=== PATIENT | male | born 1950 | race Caucasian/White ===

== ENCOUNTER 2019-01-09 19:22 | Emergency (ER) | payer OTHER ==
[2019-01-09 19:36] VITALS: BP 177/83
[2019-01-09] MEDS ORDERED: HYDROcod/ACET 5/325 Prepack 4 PO STA (19:51)
[2019-01-09] MEDS ORDERED: FLUCONAZOLE 100 MG TABLET PO STA (19:51)
[2019-01-09] MEDS ORDERED: NYSTATIN POWDER 15 GM TOP STA (19:51)
--- NOTE | 2019-01-09 19:53 | ED Physician Documentation ---
History of Present Illness - Stated complaint Stated Complaint: LUMP ON POSTERIOR/DIARRHEA - Chief complaint Chief Complaint: General - History obtained from History obtained from: Patient - History of Present Illness Timing: Other (3 days of a painful area in the gluteal crease. He is never had this before. No fevers or chills. He is a well-controlled diabetic. He recently moved to the area from [place] and had a long car trip with a lot of sweating.) Review of Systems Constitutional: denies: Fever, Chills Respiratory: reports: Reviewed and negative GI: reports: Reviewed and negative PD PAST MEDICAL HISTORY - Present Medications Home Medications: Ambulatory Orders Medication Instructions Recorded Confirmed Nystatin [Nystop] 1 applic TOP BID #3 bottle 01/09/19 - Allergies Allergies/Adverse Reactions: Allergies Allergy/AdvReac Type Severity Reaction Status Date / Time glipizide Allergy Edema Verified 01/09/19 19:32 insulin glargine Allergy Rash Verified 01/09/19 19:33 [From Lantus U-100 Insulin] PD ED PE NORMAL - Vitals Vital signs reviewed: Yes - General General: Alert and oriented X 3, No acute distress - Derm Derm: Other (He has intertriginous candidiasis towards the top of the gluteal crease without fluid collection or suggestion of abscess.) - Neuro Neuro: Alert and oriented X 3, Normal speech Results - Vitals Vitals: Vital Signs - 24 hr 01/09/19 19:28 Temperature 36.2 C L Heart Rate 93 Respiratory 16 Rate Blood Pressure 177/83 H O2 Saturation 95 Oxygen O2 Source Room air Departure - Departure Disposition: Home, Self Care Clinical Impression: Intertriginous candidiasis Hypertension Qualifiers: Hypertension type: essential hypertension Qualified Code(s): I10 - Essential (primary) hypertension Condition: Good Record reviewed to determine appropriate education?: Yes Instructions: ED Candidiasis Cutaneous Prescriptions: Nystatin [Nystop] 1 applic TOP BID #3 bottle Comments: Followup with your physician in 1 week. Return if worse.
== END 2019-01-09 20:08 | disposition home or self-care (01) ==
LOC: ED 19:22
DX: B37.2 Candidiasis of skin and nail (principal); I10 Essential (primary) hypertension; E11.9 Type 2 diabetes mellitus without complications; Z79.4 Long term (current) use of insulin
CPT/HCPCS: 99283; A9270

== ENCOUNTER 2019-01-12 19:34 | Emergency (ER) | payer OTHER ==
[2019-01-12 19:45] VITALS: BP 160/97
--- NOTE | 2019-01-12 19:59 | ED Physician Documentation ---
PD HPI MALE - Stated complaint Stated Complaint: MALE - Chief complaint Chief Complaint: General - History obtained from History obtained from: Patient - History of Present Illness Timing - onset: How many weeks ago (2) Timing - duration: Weeks (2) Timing - details: Gradual onset Pain level now: 8 Associated symptoms: No: Dysuria, Urinary frequency, Unable to urinate Recently seen: Emergency Dept - Additional information Additional information: This is a 68-year-old man who presents with complaints that he was seen here in the emergency department 3 days ago and diagnosed with a yeast infection in the "crack of his butt". He was prescribed nystatin powder and he said pills but the pills are not working. He now has lumps there and lots of bleeding. Symptoms started 3 to 4 days before is being seen here and he relates it to the fact that he moved on December 30 had a lot of sweating when he was in and out of the [employer] truck where he had a slide kind of against the seat to get in and out of it driving from [place]. He has had this happen before in the groin region and they prescribed some pills that cleared it right up. Denies any nausea or vomiting. No fever. He is a diabetic his blood sugars been running between upper 90s and low 100s. 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 He is also concerned because he has an enlarged prostate and is just dribbling of the urine. He only showers every 2-3 days. Review of Systems Constitutional: denies: Fever GI: denies: Nausea, Vomiting : reports: Other (Can only urinate small dribbles at a time). denies: Dysuria Skin: reports: Rash (In the gluteal crease) PD PAST MEDICAL HISTORY - Past Medical History Cardiovascular: Hypertension Endocrine/Autoimmune: Type 2 diabetes Musculoskeletal: Gout Derm: Psoriasis - Past Surgical History Past Surgical History: Yes HEENT: Tonsil/Adenoidectomy - Present Medications Home Medications: Ambulatory Orders Medication Instructions Recorded Confirmed Nystatin [Nystop] 1 applic TOP BID #3 bottle 01/09/19 01/12/19 Fluconazole [Diflucan] 150 mg PO DAILY #3 tablet 01/12/19 - Allergies Allergies/Adverse Reactions: Allergies Allergy/AdvReac Type Severity Reaction Status Date / Time glipizide Allergy Edema Verified 01/12/19 19:45 insulin glargine Allergy Rash Verified 01/12/19 19:45 [From Lantus U-100 Insulin] - Social History Does the pt smoke?: No Smoking Status: Never smoker Does the pt drink ETOH?: No Does the pt have substance abuse?: No PD ED PE NORMAL - Vitals Vital signs reviewed: Yes - General General: Alert and oriented X 3, No acute distress, Well developed/nourished - HEENT HEENT: Atraumatic - Respiratory Respiratory: No respiratory distress - Abdomen Abdomen: Other (Obese) - Derm Derm: Other (There is a erythematous rash with the top layer of skin denuded in the gluteal crease and there is serous drainage. No abscess.) - Neuro Neuro: Alert and oriented X 3, Other (No gross neurological deficits.) - Psych Psych: Normal mood, Normal affect Results - Vitals Vitals: Vital Signs - 24 hr 01/12/19 19:43 Temperature 36.9 C Heart Rate 74 Respiratory 16 Rate Blood Pressure 160/97 H O2 Saturation 96 Oxygen O2 Source Room air - Labs Labs: Laboratory Tests 01/12/19 20:53 Urine Color YELLOW Urine Clarity CLEAR Urine pH 5.5 Ur Specific [place] 1.020 Urine Protein 30 H Urine Glucose (UA) NEGATIVE Urine Ketones NEGATIVE Urine Occult Blood NEGATIVE Urine Nitrite NEGATIVE Urine Bilirubin NEGATIVE Urine Urobilinogen 0.2 (NORMAL) Ur Leukocyte Esterase NEGATIVE Urine RBC None Seen Urine WBC 0-3 Ur Squamous Epith Cells NONE SEEN Urine Bacteria None Seen Ur Microscopic Review INDICATED Urine Culture Comments NOT INDICATED Departure - Departure Disposition: 01 Home, Self Care Clinical Impression: Intertriginous candidiasis Condition: Good Instructions: ED Candidiasis Cutaneous Follow-Up: [facility] [Provider Group] Prescriptions: Fluconazole [Diflucan] 150 mg PO DAILY #3 tablet Comments: You must keep this area as dry as possible. When you are at home if you can leave it open to the air to dry would be ideal. Also if you are out and working using strips of 100% cotton in the crease can help to keep the skin folds from rubbing and touching each other. These need to be changed as they get wet. The prescription for Diflucan for 3 days orally to see if that will help resolve the rash. If it continues she should follow-up at the [facility] for further management, it is possible you would need long-term oral medications that would require monitoring of your liver function test and/or referral to nail cutter.
[2019-01-12 21:07] LABS: BILIRUBIN,URINE NEGATIVE (NEGATIVE); GLUCOSE, URINE (UA) NEGATIVE (NEGATIVE); KETONES,URINE (UA) NEGATIVE (NEGATIVE); LEUKOCYTE ESTERASE, URINE NEGATIVE (NEGATIVE); NITRITE,URINE NEGATIVE (NEGATIVE); OCCULT BLOOD,URINE NEGATIVE (NEGATIVE); PH,URINE 5.5 PH (5.0-7.5); PROTEIN,URINE 30 mg/dL (NEGATIVE); UROBILINOGEN,URINE 0.2 (NORMAL) E.U./dL (NORMAL)
[2019-01-12 21:22] LABS: CLARITY,URINE CLEAR (CLEAR)
[2019-01-12 21:37] LABS: BACTERIA,URINE None Seen /HPF (None Seen); RBC,URINE None Seen /HPF (0-5); SQUAMOUS EPITHELIAL CELL,UR NONE SEEN (<= Few)
== END 2019-01-12 21:54 | disposition home or self-care (01) ==
LOC: ED 19:34
DX: B37.2 Candidiasis of skin and nail (principal); E11.9 Type 2 diabetes mellitus without complications; I10 Essential (primary) hypertension
CPT/HCPCS: 81001; 81003; 87086; 99283

== ENCOUNTER 2019-01-17 04:15 | Emergency (ER) | payer OTHER ==
--- NOTE | 2019-01-17 05:14 | ED Physician Documentation ---
History of Present Illness - Stated complaint Stated Complaint: L WRIST PX - Chief complaint Chief Complaint: Ext Problem - History obtained from History obtained from: Patient - History of Present Illness Timing: How many days ago (2) - Additonal information Additional information: 68-year-old male with a history of gout and diabetes has recently moved to the area and he did have to do a lot of the work himself. He has had a sore left wrist and over the past 2 days his wrist is exquisitely tender. He is not able to move the wrist without severe pain. He has had persistence of the pain he has swelling and he feels this is somewhat different than what he has had with the gout. He indicates that with the gout he has had recent episode where he required prednisone and he is just about done with that. Review of Systems Constitutional: denies: Fever Eyes: denies: Decreased vision Ears: denies: Ear pain Nose: denies: Congestion Throat: denies: Sore throat Cardiac: denies: Chest pain / pressure Respiratory: denies: Dyspnea, Cough GI: denies: Nausea, Vomiting Skin: denies: Rash Musculoskeletal: reports: Extremity pain, Joint pain, Joint swelling. denies: Neck pain Neurologic: denies: Generalized weakness, Focal weakness, Numbness PD PAST MEDICAL HISTORY - Past Medical History Past Medical History: Yes Cardiovascular: Hypertension Endocrine/Autoimmune: Type 2 diabetes Musculoskeletal: Gout Derm: Psoriasis - Past Surgical History Past Surgical History: Yes HEENT: Tonsil/Adenoidectomy - Present Medications Home Medications: Ambulatory Orders Medication Instructions Recorded Confirmed Nystatin [Nystop] 1 applic TOP BID #3 bottle 01/09/19 01/12/19 Fluconazole [Diflucan] 150 mg PO DAILY #3 tablet 01/12/19 Hydrocodone/Acetaminophen 1 - 2 each PO Q6H PRN #14 tablet 01/17/19 [Hydrocodon-Acetaminophen 5-325] - Allergies Allergies/Adverse Reactions: Allergies Allergy/AdvReac Type Severity Reaction Status Date / Time glipizide Allergy Edema Verified 01/12/19 19:45 insulin glargine Allergy Rash Verified 01/12/19 19:45 [From Lantus U-100 Insulin] - Social History Does the pt smoke?: No Smoking Status: Never smoker Does the pt drink ETOH?: No Does the pt have substance abuse?: No PD ED PE NORMAL - Vitals Vital signs reviewed: Yes (hypertensive ) - General General: Alert and oriented X 3, No acute distress, Well developed/nourished - HEENT HEENT: Atraumatic, PERRL, EOMI - Respiratory Respiratory: No respiratory distress - Derm Derm: Normal color, Warm and dry, No rash - Extremities Extremities: Other (There is swelling and tenderness to the left wrist and hand. There is pain with any flexion/extension and there is pain to direct palpation. The pain is exquisit. consistent with gout. ) - Neuro Neuro: Alert and oriented X 3, supervisor counseling and guidance 2-12 intact, No motor deficit, No sensory deficit, Normal speech Eye Opening: Spontaneous Motor: Obeys Commands Verbal: Oriented GCS Score: 15 - Psych Psych: Normal mood, Normal affect Results - Vitals Vitals: Vital Signs - 24 hr 01/17/ 04:19 Temperature 36.6 C Heart Rate 78 Respiratory 18 Rate Blood Pressure 149/89 H O2 Saturation 99 Oxygen O2 Source Room air PD MEDICAL DECISION MAKING - ED course Complexity details: reviewed old records, reviewed results, re-evaluated patient, considered differential, d/w patient ED course: recently moved to the area diabetic with acute gout. Not able to take NSAIDS with only one kidney. He is administered decadron and we will provide some norco. Departure - Departure Disposition: 01 Home, Self Care Clinical Impression: Gout attack Qualifiers: Gout site: wrist Gout etiology: unspecified cause Laterality: left Qualified Code(s): M10.9 - Gout, unspecified Condition: Stable Instructions: ED Diet Gout, Gout Attack Tx Follow-Up: [facility] [Provider Group] Prescriptions: Hydrocodone/Acetaminophen [Hydrocodon-Acetaminophen 5-325] 1 - 2 each PO Q6H PRN #14 tablet PRN Reason: pain
[2019-01-17] MEDS: DEXAMETHASONE 10 MG/ML VIAL PO STA (05:19)
[2019-01-17] MEDS: HYDROcod/ACET 5/325 Prepack 4 PO STA (05:19)
[2019-01-17] MEDS: CHERRY SYRUP 10 ML UDC PO ONE (05:19)
[2019-01-17 05:29] VITALS: BP 145/87
== END 2019-01-17 05:26 | disposition home or self-care (01) ==
LOC: ED 04:15
DX: M10.9 Gout, unspecified (principal); E11.9 Type 2 diabetes mellitus without complications; I10 Essential (primary) hypertension; Z90.5 Acquired absence of kidney
CPT/HCPCS: 99283

== ENCOUNTER 2019-09-25 09:11 | Emergency (ER) | payer OTHER ==
[2019-09-25 10:13] LABS: BASOPHILS % (AUTO) 0.5 %; EOSINOPHILS # (AUTO) 0.2 10^3/uL (0.0-0.7); EOSINOPHILS % (AUTO) 3.8 %; LYMPHOCYTES # (AUTO) 0.9 10^3/uL (1.5-3.5); LYMPHOCYTES % (AUTO) 15.3 %; MEAN CORPUSCULAR HEMOGLOBIN 29.7 pg (27.0-31.0); MEAN CORPUSCULAR HGB CONC 31.2 g/dL (32.0-36.0); MEAN CORPUSCULAR VOLUME 95.4 fL (80.0-94.0); MEAN PLATELET VOLUME 10.4 fL (7.4-11.4); MONOCYTES # (AUTO) 0.6 10^3/uL (0.0-1.0); MONOCYTES % (AUTO) 10.8 %; NEUTROPHILS % (AUTO) 69.3 %; PLT - PLATELET COUNT 181 10^3/uL (130-450); RED CELL DISTRIBUTION WIDTH 14.6 % (12.0-15.0); WHITE BLOOD COUNT 5.8 x10^3/uL (4.8-10.8)
--- NOTE | 2019-09-25 10:24 | XRAY Report ---
Reason: CHEST PX Procedure Date: 09/25/2019 Accession Number: [id number] / [id number] Procedure: XR - Chest 2 View X-Ray CPT Code: 72810 Final Report FULL RESULT: EXAM: CHEST RADIOGRAPHY EXAM DATE: 09/25/2019 10:17 AM. CLINICAL HISTORY: Chest pain COMPARISON: None. TECHNIQUE: 2 views. FINDINGS: Lungs/Pleura: Normal volumes. No focal consolidation or evidence of edema. No pleural effusion or pneumothorax. Mediastinum: Heart size is normal. The aorta is mildly tortuous and contains atherosclerotic calcifications. Other: Mid/lower thoracic spine DISH. IMPRESSION: No acute cardiopulmonary abnormality. RADIA
[2019-09-25 10:30] LABS: ALBUMIN/GLOBULIN RATIO 1.4 (1.0-2.2); BILIRUBIN,TOTAL 0.7 mg/dL (0.2-1.0); CREATININE 2.7 mg/dL (0.6-1.2); TOTAL PROTEIN 6.9 g/dL (6.7-8.2)
--- NOTE | 2019-09-25 11:34 | ED Physician Documentation ---
History of Present Illness - Stated complaint Stated Complaint: SOA - Chief complaint Chief Complaint: Resp - History obtained from History obtained from: Patient - History of Present Illness Timing: How many days ago (3) - Additonal information Additional information: Patient comes emergency department complaining of shortness of breath. Patient states he has a longstanding history of allergies and has had asthma-like symptoms, though he does not believe he actually has asthma. He has been treated previously with various inhalers, including Combivent and Spiriva, as well as antihistamines. 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 He states that he does not have any cardiac issues that he knows of, except for a benign heart murmur. Patient states that he has not had any fevers or chills. No cough that is new. He states he does not feel short of breath unless he is laying down. He denies any chest pain. No abdominal pain. He states his right leg has been intermittently swollen over the last couple of years, but he is been worked up for DVT and this is been negative. He states he has a little more swelling in his legs than he normally would. No other complaints at this time.Patient denies any exertional dyspnea that is new for him. Review of Systems Ten Systems: 10 systems reviewed and negative Constitutional: reports: Reviewed and negative Eyes: reports: Reviewed and negative Ears: reports: Reviewed and negative Nose: reports: Reviewed and negative Throat: reports: Reviewed and negative Cardiac: reports: Reviewed and negative Respiratory: reports: Dyspnea GI: reports: Reviewed and negative : reports: Reviewed and negative Skin: reports: Reviewed and negative Musculoskeletal: reports: Reviewed and negative Neurologic: reports: Reviewed and negative Psychiatric: reports: Reviewed and negative Endocrine: reports: Reviewed and negative Immunocompromised: reports: Reviewed and negative PD PAST MEDICAL HISTORY - Past Medical History Past Medical History: Yes Cardiovascular: Hypertension Respiratory: Shortness of breath Neuro: Peripheral neuropathy Endocrine/Autoimmune: Type 2 diabetes Musculoskeletal: Osteoarthritis, Gout Derm: Psoriasis - Past Surgical History Past Surgical History: Yes HEENT: Tonsil/Adenoidectomy - Present Medications Home Medications: Ambulatory Orders Medication Instructions Recorded Confirmed Ascorbic Acid [Vitamin C] 1,000 mg PO DAILY 08/09/19 08/09/19 Candesartan Cilexetil [Atacand] 32 mg PO DAILY PM 08/09/19 08/09/19 Cholecalciferol (Vitamin D3) 2 cap PO DAILY 08/09/19 08/09/19 [Vitamin D3] Flaxseed Oil 1,000 mg PO DAILY 08/09/19 08/09/19 Fluticasone [Flonase] 1 spray MINERVA DAILY PRN 08/09/19 08/09/19 Methotrexate 5 mg PO ONCE 08/09/19 08/09/19 Multivitamin [Multiple Vitamins] 1 cap PO DAILY 08/09/19 08/09/19 Tiotropium [place] [Spiriva] 2 puffs INH DAILY PRN 08/09/19 08/09/19 - Allergies Allergies/Adverse Reactions: Allergies Allergy/AdvReac Type Severity Reaction Status Date / Time glipizide Allergy Edema Verified 01/12/19 19:45 insulin glargine Allergy Rash Verified 01/12/19 19:45 [From Lantus U-100 Insulin] - Social History Does the pt smoke?: No Smoking Status: Never smoker Does the pt drink ETOH?: No Does the pt have substance abuse?: No - Immunizations Immunizations are current?: Yes PD ED PE NORMAL - Vitals Vital signs reviewed: Yes - General General: Alert and oriented X 3, No acute distress, Other (Obese) - HEENT HEENT: PERRL - Neck Neck: Supple, no meningeal sign - Cardiac Cardiac: RRR, No murmur - Respiratory Respiratory: Clear bilaterally - Abdomen Abdomen: Soft, Non tender - Derm Derm: Warm and dry - Extremities Extremities: No deformity, Other (Trace pitting edema bilateral lower extremities; girth of right lower leg is greater than left) - Neuro Neuro: Alert and oriented X 3 - Psych Psych: Normal mood, Normal affect Results - Vitals Vitals: Vital Signs - 24 hr 09/25/19 09/25/19 09/25/19 09:37 10:41 11:30 Temperature 36.7 C Heart Rate 69 70 68 Respiratory 18 16 16 Rate Blood Pressure 176/81 H 169/88 H 155/82 H O2 Saturation 97 98 97 09/25/19 09/25/19 09/25/19 12:18 14:36 15:33 Temperature 36.6 C Heart Rate 67 65 60 Respiratory 15 16 16 Rate Blood Pressure 171/81 H 159/82 H 162/85 H O2 Saturation 99 98 98 09/25/19 15:45 Temperature 36.6 C Heart Rate 78 Respiratory 16 Rate Blood Pressure 156/81 H O2 Saturation 98 Oxygen O2 Source Room air - Labs Labs: Laboratory Tests 09/25/19 09/25/19 09/25/19 09:41 09:59 09:59 WBC 5.8 RBC 3.70 L Hgb 11.0 L Hct 35.3 L MCV 95.4 H MCH 29.7 MCHC 31.2 L RDW 14.6 Plt Count 181 MPV 10.4 Neut # (Auto) 4.0 Lymph # (Auto) 0.9 L Andrew # (Auto) 0.6 Eos # (Auto) 0.2 Baso # (Auto) 0.0 Absolute Nucleated RBC 0.00 Nucleated RBC % 0.0 Sodium 139 Potassium 4.7 Chloride 108 Carbon Dioxide 24 Anion Gap 7.0 BUN 53 H Creatinine 2.7 H Estimated GFR (MDRD) 23 L Glucose 231 H Calcium 9.0 Total Bilirubin 0.7 AST 40 ALT 55 Alkaline Phosphatase 77 Troponin I High Sens B-Natriuretic Peptide 167 H Total Protein 6.9 Albumin 4.0 Globulin 2.9 Albumin/Globulin Ratio 1.4 Lipase 41 09/25/19 09/25/19 09:59 14:35 WBC RBC Hgb Hct MCV MCH MCHC RDW Plt Count MPV Neut # (Auto) Lymph # (Auto) Andrew # (Auto) Eos # (Auto) Baso # (Auto) Absolute Nucleated RBC Nucleated RBC % Sodium Potassium Chloride Carbon Dioxide Anion Gap BUN Creatinine Estimated GFR (MDRD) Glucose Calcium Total Bilirubin AST ALT Alkaline Phosphatase Troponin I High Sens 26.4 H* 21.8 H* B-Natriuretic Peptide Total Protein Albumin Globulin Albumin/Globulin Ratio Lipase - Rads (name of study) chest x-ray Radiology: Final report received, EMP read indepedently (IMPRESSION: No acute cardiopulmonary abnormality.) PD MEDICAL DECISION MAKING - ED course Complexity details: reviewed old records, reviewed results, re-evaluated patient, considered differential, d/w patient ED course: Patient is actually fairly well-appearing in the emergency department, and did have good oxygen saturation, with good waveform and sats 99 to 100% on room air. His lungs were clear, and patient talked very easily and without any laboring of respirations.The patient was worked up with a chest x-ray, which was negative, and laboratory studies including BNP.He was found to have mild elevations in his initial troponin and his BNP. Repeat troponin did not show significant change. I did not find evidence of an emergent condition at this time. We have discussed home management of the symptoms, the need for follow- up, and the usual indications for return. Departure - Departure Disposition: 01 Home, Self Care Clinical Impression: Dyspnea Condition: Good Instructions: ED Reactive Airway Disease, ED Dyspnea Shortness of Breath Comments: Your labs and chest x-ray are all negative. Your lung exam actually reveals clear lungs and your oxygen in your blood is good. Please follow-up with your primary care physician if you continue to feel the sensation of shortness of breath. No emergent condition has been identified today. Please continue to take your home medications, as usual. Discharge Date/Time: 09/25/19 15:45
[2019-09-25 15:46] VITALS: BP 156/81
== END 2019-09-25 15:45 | disposition home or self-care (01) ==
LOC: ED 09:11
DX: R06.00 Dyspnea, unspecified (principal); I10 Essential (primary) hypertension; E11.9 Type 2 diabetes mellitus without complications
CPT/HCPCS: 36415; 71046; 80053; 83690; 83880; 84484; 85025; 93005; 99284